=== PATIENT | female | born 1985 | race Hispanic/Latino ===

== ENCOUNTER 2024-05-16 21:02 | Emergency (ER) | payer SELFPAY ==
[2024-05-16] MEDS ORDERED: SMZ./TMP. 800/160 MG TABLET ONE (22:23)
--- NOTE | 2024-05-16 22:24 | ER ---
Nurse's Notes [facility] Name: Nahid Franklin Age: 38 yrs Sex: Female : 1985 Arrival Date: 05/16/2024 Time: 21:02 Bed DX3 Private MD: Diagnosis: Cellulitis, hyperglycemia Presentation: 05/16 21:27 Chief complaint: Patient states: RASH TO LEFT ARM ONSET YESTERDAY. PATIENT HAS NOTED cm10 BLISTER TO LEFT INDEX FINGER. PT STATES THAT THE RASH [place]. Coronavirus screen: Client denies travel out of the [place] in the last 14 days. At this time, the client does not indicate any symptoms associated with coronavirus-19. Ebola Screen: Patient denies travel to an Ebola-affected area in the 21 days before illness onset. No symptoms or risks identified at this time. Initial Sepsis Screen: Does the patient meet any 2 criteria? No. Patient's initial sepsis screen is negative. Does the patient have a suspected source of infection? No. Patient's initial sepsis screen is negative. Risk Assessment: Do you want to hurt yourself or someone else? Patient reports no desire to harm self or others. Onset of symptoms was May 16, 2024. 21:27 Method Of Arrival: Ambulatory cm10 21:27 Acuity: XAVIER 4 cm10 Triage Assessment: 21:28 General: Appears in no apparent distress. comfortable, Behavior is calm, cooperative. cm10 Neuro: No deficits noted. Level of Consciousness is awake, alert, obeys commands, Oriented to person, place, time, situation, Appropriate for age. Respiratory: No deficits noted. Airway is patent Respiratory effort is even, unlabored, Respiratory pattern is regular, symmetrical. Historical: - Allergies: 21:28 Morphine; cm10 - PMHx: 21:28 Diabetes mellitus; cm10 - PSHx: 21:28 section; cm10 - Immunization history:: Adult Immunizations up to date. - Infectious Disease History:: Denies. - Social history:: Smoking status: Patient denies any tobacco usage or history of. Screenin:59 [facility] ED Fall Risk Assessment (Adult) History of falling in the last 3 months, vc1 including since admission No falls in past 3 months (0 pts) Confusion or Disorientation No (0 pts) Intoxicated or Sedated No (0 pts) Impaired Gait No (0 pts) Mobility Assist Device Used No (0 pt) Altered Elimination No (0 pt) Score/Fall Risk Level 0 - 2 = Low Risk Oriented to surroundings, Maintained a safe environment, Educated pt \T\ family on fall prevention, incl call for assistance when getting out of bed. Abuse screen: Denies threats or abuse. Nutritional screening: No deficits noted. Tuberculosis screening: No symptoms or risk factors identified. Vital Signs: 21:27 BP 141 / 88; Pulse 95; Resp 16; Temp 96.6; Pulse Ox 99% on R/A; Weight 104.33 kg; cm10 Height 5 ft. 4 in. ; Pain 3/10; 21:27 Body Mass Index 39.48 (104.33 kg, 162.56 cm) cm10 21:27 Pain Scale: Adult cm10 ED Course: 21:06 Patient arrived in ED. im 21:09 Brenden Garcia MD is Attending Physician. sp3 21:28 Triage completed. cm10 21:29 Arm band placed on Patient placed in waiting room. cm10 22:59 No provider procedures requiring assistance completed. Patient did not have IV access vc1 during this emergency room visit. 23:00 SEEN IN DIAGNOSTIC CHAIR. Provided Education on: GLUCOSE CONTROL. vc1 Administered Medications: 22:31 Drug: Trimethoprim-Sulfamethoxazole PO (160 mg-800 mg (DS) 1 tablet PO once Route: PO; vc1 Medication: 23:00 VIS not applicable for this client. vc1 Outcome: 22:23 Discharge ordered by . sp3 22:59 Discharged to home ambulatory, with significant other, vc1 22:59 Condition: good 22:59 Discharge instructions given to patient, Instructed on discharge instructions, follow up and referral plans. medication usage, Demonstrated understanding of instructions, follow-up care, medications, Prescriptions given X 2, 23:01 Patient left the ED. vc1 Signatures: Brenden Garcia MD MD sp3 Aria Crockett RN RN vc1 Shannon Ruffin Clarissa RN RN cm10 Corrections: (The following items were deleted from the chart) 21:28 21:28 Allergies: No Known Allergies; cm10 cm10
--- NOTE | 2024-05-16 22:24 | EDPHYS ---
Physician Documentation [facility] Name: Nahid Franklin Age: 38 yrs Sex: Female : 1985 Arrival Date: 05/16/2024 Time: 21:02 Bed DX3 Private MD: ED Physician Brenden Garcia HPI: 05/16 22:06 This 38 yrs old Female presents to ER via Ambulatory with complaints of Rash. sp3 22:06 38-year-old female with chief complaint rash and mild pain to the dorsal hand and sp3 proximal index finger. Possible abrasion and patient has also been swimming in seawater. Patient concern for infection and also sent by pharmacist where patient went to "get some cream for her finger". Patient is from [facility] and has no local physician. She denies any fever, proximal streaking or rash beyond the hand, or any other signs or symptoms on ROS at this time.. Historical: - Allergies: 21:28 Morphine; cm10 - PMHx: 21:28 Diabetes mellitus; cm10 - PSHx: 21:28 section; cm10 - Immunization history:: Adult Immunizations up to date. - Infectious Disease History:: Denies. - Social history:: Smoking status: Patient denies any tobacco usage or history of. ROS: 22:08 Constitutional: Negative for fever, chills, and weight loss, Eyes: Negative for injury, sp3 pain, redness, and discharge, Neck: Negative for injury, pain, and swelling, Cardiovascular: Negative for chest pain, palpitations, and edema, Respiratory: Negative for shortness of breath, cough, wheezing, and pleuritic chest pain, Abdomen/GI: Negative for abdominal pain, nausea, vomiting, diarrhea, and constipation, Back: Negative for injury and pain, Neuro: Negative for headache, weakness, numbness, tingling, and seizure, Allergy/Immunology: Negative for hives, rash, and allergies, Endocrine: Negative for neck swelling, polydipsia, polyuria, polyphagia, and marked weight changes, Exam: 22:12 Constitutional: This is a well developed, well nourished patient who is awake, alert, sp3 and in no acute distress. Head/Face: Normocephalic, atraumatic. Chest/axilla: Normal chest wall appearance and motion. Nontender with no deformity. No lesions are appreciated. Cardiovascular: Regular rate and rhythm with a normal S1 and S2. No gallops, murmurs, or rubs. Normal PMI, no JVD. No pulse deficits. Respiratory: Lungs have equal breath sounds bilaterally, clear to auscultation and percussion. No rales, rhonchi or wheezes noted. No increased work of breathing, no retractions or nasal flaring. Abdomen/GI: Soft, non-tender, with normal bowel sounds. No distension or tympany. No guarding or rebound. No evidence of tenderness throughout. 22:12 Skin: Less than 0.5% body surface area area of erythema with singular blister consistent with cellulitis. No skin sloughing, necrosis, weeping or other concerning symptoms or signs noted.. Vital Signs: 21:27 BP 141 / 88; Pulse 95; Resp 16; Temp 96.6; Pulse Ox 99% on R/A; Weight 104.33 kg; cm10 Height 5 ft. 4 in. ; Pain 3/10; 21:27 Body Mass Index 39.48 (104.33 kg, 162.56 cm) cm10 21:27 Pain Scale: Adult cm10 MDM: 21:31 Patient medically screened. sp3 22:13 Data reviewed: vital signs, nurses notes. ED course: 38-year-old female with cellulitis sp3 to the left hand. I am not highly suspicious for sepsis, shock, local necrosis or any other critical process. Will place on Bactrim and Bactroban topical and discharged home. Accu-Chek prior to discharge.. 05/16 22:33 Order name: Glucose, Ancillary Testing EDMS 05/16 22:05 Order name: Accucheck; Complete Time: 22:22 sp3 Administered Medications: 22:31 Drug: Trimethoprim-Sulfamethoxazole PO (160 mg-800 mg (DS) 1 tablet PO once Route: PO; vc1 Disposition Summary: 05/16/24 22:23 Discharge Ordered Notes: Location: Home sp3 Condition: Stable sp3 Diagnosis - Cellulitis, hyperglycemia sp3 Followup: sp3 - With: Private Physician - When: Upon discharge from the Emergency Department - Reason: Continuance of care Discharge Instructions: - Discharge Summary Sheet sp3 - Cellulitis, Adult sp3 Forms: - Medication Reconciliation Form sp3 - Antibiotic Education sp3 - Prescription Opioid Use sp3 - Patient Portal Instructions sp3 - Leadership Thank You Letter sp3 Prescriptions: - mupirocin 2 % Topical ointment - apply 1 application TOPICAL route 4 times per day; 1 Each; Refills: 0, Product sp3 Selection Permitted - Bactrim DS 800-160 mg Oral Tablet - take 1 tablet ORAL route every 12 hours for 7 days; 14 tablet; Refills: 0, sp3 Product Selection Permitted Signatures: Brenden Garcia MD MD sp3 Aria Crockett RN RN vc1 Pallavi Parham RN RN cm10 Corrections: (The following items were deleted from the chart) 21:28 21:28 Allergies: No Known Allergies; cm10 cm10
[2024-05-17 08:51] VITALS: BP 141/88; TEMP 96.6; O2SAT 99
== END 2024-05-16 23:01 | disposition home or self-care (01) ==
LOC: ER 21:02
DX: L03.012 Cellulitis of left finger (principal); E11.65 Type 2 diabetes mellitus with hyperglycemia
CPT/HCPCS: 82947